=== PATIENT | male | born 1950 | race Caucasian/White ===

== ENCOUNTER 2017-03-12 08:05 | Outpatient (CLI) | payer BC ==
[2017-03-12 12:26] LABS: BASOPHILS % (AUTO) 0.7 %; EOSINOPHILS # (AUTO) 0.4 10^3/uL (0.0-0.7); EOSINOPHILS % (AUTO) 6.7 %; HGB - HEMOGLOBIN 15.3 g/dL (14.0-18.0); LYMPHOCYTES # (AUTO) 1.9 10^3/uL (1.5-3.5); LYMPHOCYTES % (AUTO) 29.1 %; MEAN CORPUSCULAR HEMOGLOBIN 31.3 pg (27.0-31.0); MEAN CORPUSCULAR HGB CONC 33.9 g/dL (32.0-36.0); MEAN CORPUSCULAR VOLUME 92.3 fL (80.0-94.0); MEAN PLATELET VOLUME 8.1 fL (7.4-11.4); MONOCYTES # (AUTO) 0.5 10^3/uL (0.0-1.0); MONOCYTES % (AUTO) 7.1 %; NEUTROPHILS # (AUTO) 3.6 10^3/uL (1.5-6.6); NEUTROPHILS % (AUTO) 56.4 %; PLT - PLATELET COUNT 206 10^3/uL (130-450); RED BLOOD COUNT 4.88 10^6/uL (4.70-6.10); RED CELL DISTRIBUTION WIDTH 12.9 % (12.0-15.0); WHITE BLOOD COUNT 6.5 x10^3/uL (4.8-10.8)
[2017-03-12 13:01] LABS: ALBUMIN 4.1 g/dL (3.2-5.5); ALBUMIN/GLOBULIN RATIO 1.7 (1.0-2.2); ALKALINE PHOSPHATASE 35 IU/L (42-121); ALT ALANINE AMINOTRANSFERASE 20 IU/L (10-60); AST ASPARTATE AMINOTRANSFERASE 28 IU/L (10-42); BILIRUBIN,TOTAL 1.4 mg/dL (0.2-1.0); BUN - BLOOD UREA NITROGEN 9 mg/dL (6-20); CALCIUM 8.7 mg/dL (8.5-10.3); CARBON DIOXIDE - CO2 25 mmol/L (21-32); CHLORIDE 104 mmol/L (101-111); CHOL/HDL RATIO 2.8 (<5.0); CHOLESTEROL 145 mg/dL; CREATININE 0.8 mg/dL (0.6-1.2); GFR - MDRD 97 (>89); GLUCOSE 104 mg/dL (70-100); HDL CHOLESTEROL 52 mg/dL; LDL CHOLESTEROL,CALCULATED 72 mg/dL; LDL/HDL RATIO 1.4 (<3.6); SODIUM 136 mmol/L (135-145); TOTAL PROTEIN 6.5 g/dL (6.7-8.2); VLDL CHOLESTEROL 21 mg/dL
== END 2017-03-12 08:06 | disposition home or self-care (01) ==
LOC: LAB.WCP 08:05
PROVIDERS: ATTEND Family Medicine
DX: R03.0 Elevated blood-pressure reading, without diagnosis of hypertension (principal); E78.5 Hyperlipidemia, unspecified; Z12.5 Encounter for screening for malignant neoplasm of prostate
CPT/HCPCS: 36415; 80053; 80061; 84153; 85025

== ENCOUNTER 2017-05-23 12:07 | Outpatient (CLI) | payer BC | END 2017-05-23 12:08 | disposition EMS.NT | LOC: EMS 12:07 | PROVIDERS: ATTEND Surgery | DX: H53.8 Other visual disturbances (principal) ==

== ENCOUNTER 2017-09-30 08:00 | Outpatient (CLI) | payer BC ==
[2017-09-30 13:54] LABS: ALBUMIN 3.8 g/dL (3.2-5.5); ALBUMIN/GLOBULIN RATIO 1.3 (1.0-2.2); BILIRUBIN,TOTAL 1.6 mg/dL (0.2-1.0); CALCIUM 9.1 mg/dL (8.5-10.3); CREATININE 0.9 mg/dL (0.6-1.2); TOTAL PROTEIN 6.7 g/dL (6.7-8.2)
== END 2017-09-30 08:01 | disposition home or self-care (01) ==
LOC: LAB.WCP 08:00
PROVIDERS: ATTEND Family Medicine
DX: R03.0 Elevated blood-pressure reading, without diagnosis of hypertension (principal)
CPT/HCPCS: 36415; 80053

== ENCOUNTER 2018-03-25 08:00 | Outpatient (CLI) | payer BC ==
[2018-03-25 13:37] LABS: BASOPHILS % (AUTO) 0.7 %; EOSINOPHILS # (AUTO) 0.4 10^3/uL (0.0-0.7); EOSINOPHILS % (AUTO) 6.1 %; HGB - HEMOGLOBIN 14.7 g/dL (14.0-18.0); LYMPHOCYTES # (AUTO) 1.8 10^3/uL (1.5-3.5); LYMPHOCYTES % (AUTO) 29.9 %; MEAN CORPUSCULAR HGB CONC 34.2 g/dL (32.0-36.0); MEAN CORPUSCULAR VOLUME 93.5 fL (80.0-94.0); MEAN PLATELET VOLUME 7.8 fL (7.4-11.4); MONOCYTES # (AUTO) 0.4 10^3/uL (0.0-1.0); MONOCYTES % (AUTO) 7.2 %; NEUTROPHILS # (AUTO) 3.3 10^3/uL (1.5-6.6); NEUTROPHILS % (AUTO) 56.1 %; PLT - PLATELET COUNT 276 10^3/uL (130-450); RED CELL DISTRIBUTION WIDTH 13.1 % (12.0-15.0); WHITE BLOOD COUNT 5.9 x10^3/uL (4.8-10.8)
[2018-03-25 13:44] LABS: ALBUMIN 4.1 g/dL (3.2-5.5); ALBUMIN/GLOBULIN RATIO 1.5 (1.0-2.2); ALKALINE PHOSPHATASE 38 IU/L (42-121); ALT ALANINE AMINOTRANSFERASE 15 IU/L (10-60); AST ASPARTATE AMINOTRANSFERASE 31 IU/L (10-42); BILIRUBIN,TOTAL 1.3 mg/dL (0.2-1.0); BUN - BLOOD UREA NITROGEN 9 mg/dL (6-20); CARBON DIOXIDE - CO2 23 mmol/L (21-32); CHLORIDE 102 mmol/L (101-111); CHOL/HDL RATIO 2.7 (<5.0); CHOLESTEROL 119 mg/dL; GFR - MDRD 75 (>89); GLUCOSE 103 mg/dL (70-100); HDL CHOLESTEROL 44 mg/dL; LDL CHOLESTEROL,CALCULATED 59 mg/dL; LDL/HDL RATIO 1.3 (<3.6); SODIUM 135 mmol/L (135-145); TOTAL PROTEIN 6.8 g/dL (6.7-8.2); VLDL CHOLESTEROL 16 mg/dL
== END 2018-03-25 23:59 | disposition home or self-care (01) ==
LOC: LAB.WCP 08:00
PROVIDERS: ATTEND Family Medicine
DX: E78.5 Hyperlipidemia, unspecified (principal); I10 Essential (primary) hypertension; M54.5 Low back pain; D12.6 Benign neoplasm of colon, unspecified; Z12.5 Encounter for screening for malignant neoplasm of prostate
CPT/HCPCS: 36415; 80053; 80061; 83721; 84153; 85025

== ENCOUNTER 2018-05-02 13:09 | Outpatient (CLI) | payer BC ==
[2018-05-02] MEDS ORDERED: GADOPENTETATE DIMEGLUMINE 5 ML VIAL IVP ONE ×2 (13:28→15:33)
[2018-05-02] MEDS ORDERED: IOTHALAMATE MEGLUMINE 50 ML VIAL ONE (13:28)
[2018-05-02] MEDS ORDERED: BUFFERED LIDOCAINE 10 ML SYRINGE ONE (13:29)
--- NOTE | 2018-05-02 14:56 | XRAY Report ---
Reason: WRIST PAIN,RIGHT Procedure Date: 05/02/2018 Accession Number: [id number] / [id number] Procedure: FL - Arthrogram Needle Placement CPT Code: FULL RESULT: EXAM: Right Wrist Arthrographic Injection with Fluoroscopic Guidance EXAM DATE: 05/02/2018 02:08 PM. CLINICAL HISTORY: Right wrist pain COMPARISON: None. TECHNIQUE: The risks, benefits, and alternatives of the procedure were discussed with the patient. All questions were answered. Written and verbal consent were obtained. The radiocarpal joint was marked under fluoroscopy and prepped and draped in a sterile manner. Local anesthesia was performed with 1% lidocaine. A 25-gauge needle was then inserted into the radiocarpal joint. 2 mL of a solution containing 25% 1% lidocaine, 25% iodinated contrast, and a 1:200 dilution of gadolinium contrast in sterile saline was then injected. The initial contrast injection was unsuccessful with contrast delivered to the dorsal soft tissues. The needle was repositioned and the contrast solution injection was repeated with a total of 4 mL injected. The needle was removed without any further immediate complication. Other: None. Fluoroscopy Time: 0.4 minutes. Number of Images: 15. FINDINGS: Bones and joints: No fracture or subluxation. Injection: Fluoroscopic images demonstrate needle placement and contrast in the radiocarpal joint. Contrast extravasation outside the radiocarpal joint with initial injection as described. IMPRESSION: Fluoroscopically guided arthrographic injection of the wrist as described. [facility]
[2018-05-02] MEDS ORDERED: IOTHALAMATE MEGLUMINE 50 ML VIAL IVP ONE (15:33)
[2018-05-02] MEDS ORDERED: BUFFERED LIDOCAINE 10 ML SYRINGE IU ONE (15:33)
--- NOTE | 2018-05-02 16:44 | MRI Report ---
Reason: WRIST PAIN,RIGHT Procedure Date: 05/02/2018 Accession Number: [id number] / [id number] Procedure: MRI - Arthrogram Wrist RT CPT Code: FULL RESULT: EXAM: RIGHT WRIST MRI ARTHROGRAM WITH CONTRAST EXAM DATE: 05/02/2018 03:06 PM. CLINICAL HISTORY: Right wrist pain. COMPARISON: ARTHROGRAM NEEDLE PLACEMENT 05/02/2018 2:08 PM WRIST 4 VIEW RT 03/30/2018 11:41 AM HAND 3 VIEW RT 07/02/2017 2:37 PM. TECHNIQUE: Multiplanar, multisequence T1-weighted and fluid-sensitive sequences of the wrist after an arthrographic injection of dilute gadolinium, dictated under a separate exam. Other: None. FINDINGS: Bones: There is marrow edema in the lunate with partial fragmentation along the volar margin, likely an old fracture with secondary avascular necrosis or degenerative marrow edema. Remaining bony structures appear intact. Mild first carpometacarpal degenerative joint disease. Cartilage: Mild cartilage thinning in the radiocarpal joint. Moderate mid carpal cartilage thinning at the hamatolunate articulation. There is a 0.3 cm full-thickness tear in the volar aspect of the triangular fibrocartilage near the ulnar styloid attachment with leakage of contrast into the distal radioulnar joint. Ligaments: Mild partial-thickness fraying of the scapholunate ligament but no leakage of contrast into the midcarpal joint. Lunotriquetral ligament intact. The visualized other intrinsic, extrinsic and collateral ligaments are unremarkable. Tendons: The extensor compartments I through and flexor tendons are unremarkable. Musculature: No edema or fatty atrophy. Other: The contents of the carpal tunnel, including the median nerve, are unremarkable. Guyons canal is unremarkable. No ganglion cysts. Contrast in the dorsal soft tissues from the injection. IMPRESSION: 1. Partial fragmentation of the lunate with marrow edema. Likely represents old lunate fracture with secondary degenerative changes or avascular necrosis. 2. Full-thickness partial-width tear triangular fibrocartilage at the ulnar styloid attachment. 3. Mild radiocarpal chondromalacia and moderate focal hamatolunate chondromalacia. 4. Mild first carpometacarpal degenerative joint disease. [facility] MUSCULOSKELETAL RADIOLOGY SECTION
== END 2018-05-02 13:10 | disposition home or self-care (01) ==
LOC: DI 13:09
PROVIDERS: ATTEND Orthopaedic Surgery Sports Medicine
DX: S63.591A Other specified sprain of right wrist, initial encounter (principal); M89.8X3 Other specified disorders of bone, forearm; M94.231 Chondromalacia, right wrist; M18.11 Unilateral primary osteoarthritis of first carpometacarpal joint, right hand
CPT/HCPCS: 25246; 73222; 77002; Q9961

== ENCOUNTER 2018-08-25 08:00 | Outpatient (CLI) | payer BC ==
[2018-08-25 18:55] LABS: BASOPHILS % (AUTO) 0.4 %; EOSINOPHILS # (AUTO) 0.4 10^3/uL (0.0-0.7); EOSINOPHILS % (AUTO) 5.3 %; HGB - HEMOGLOBIN 14.6 g/dL (14.0-18.0); LYMPHOCYTES % (AUTO) 28.5 %; MEAN CORPUSCULAR HEMOGLOBIN 31.1 pg (27.0-31.0); MEAN CORPUSCULAR HGB CONC 32.2 g/dL (32.0-36.0); MEAN CORPUSCULAR VOLUME 96.6 fL (80.0-94.0); MEAN PLATELET VOLUME 9.9 fL (7.4-11.4); MONOCYTES # (AUTO) 0.4 10^3/uL (0.0-1.0); MONOCYTES % (AUTO) 5.9 %; NEUTROPHILS # (AUTO) 4.3 10^3/uL (1.5-6.6); NEUTROPHILS % (AUTO) 59.6 %; PLT - PLATELET COUNT 205 10^3/uL (130-450); RED CELL DISTRIBUTION WIDTH 12.7 % (12.0-15.0); WHITE BLOOD COUNT 7.2 x10^3/uL (4.8-10.8)
[2018-08-25 19:11] LABS: ALBUMIN/GLOBULIN RATIO 1.5 (1.0-2.2); BILIRUBIN,TOTAL 1.1 mg/dL (0.2-1.0); CALCIUM 9.1 mg/dL (8.5-10.3); CREATININE 0.9 mg/dL (0.6-1.2); TOTAL PROTEIN 6.7 g/dL (6.7-8.2)
[2018-08-26 13:07] LABS: HEPATITIS C ANTIBODY NON-REACTIVE (NON-REACTIVE)
== END 2018-08-25 23:58 | disposition home or self-care (01) ==
LOC: LAB.WCP 08:00
PROVIDERS: ATTEND Orthopaedic Surgery
DX: Z01.812 Encounter for preprocedural laboratory examination (principal)
CPT/HCPCS: 36415; 80053; 85025; 86803

== ENCOUNTER 2018-09-07 11:27 | Outpatient (CLI) | payer BC | END 2018-09-07 11:28 | disposition home or self-care (01) | LOC: RT 11:27 | PROVIDERS: ATTEND Orthopaedic Surgery | DX: Z01.810 Encounter for preprocedural cardiovascular examination (principal) | CPT/HCPCS: 93005 ==

== ENCOUNTER 2018-12-29 07:45 | Outpatient (CLI) | payer BC ==
[2018-12-29 12:26] LABS: BASOPHILS % (AUTO) 0.5 %; EOSINOPHILS # (AUTO) 0.5 10^3/uL (0.0-0.7); EOSINOPHILS % (AUTO) 7.1 %; HGB - HEMOGLOBIN 14.3 g/dL (14.0-18.0); LYMPHOCYTES # (AUTO) 2.1 10^3/uL (1.5-3.5); LYMPHOCYTES % (AUTO) 33.1 %; MEAN CORPUSCULAR HEMOGLOBIN 30.6 pg (27.0-31.0); MEAN CORPUSCULAR VOLUME 95.7 fL (80.0-94.0); MEAN PLATELET VOLUME 9.8 fL (7.4-11.4); MONOCYTES # (AUTO) 0.5 10^3/uL (0.0-1.0); MONOCYTES % (AUTO) 7.4 %; NEUTROPHILS # (AUTO) 3.3 10^3/uL (1.5-6.6); NEUTROPHILS % (AUTO) 51.7 %; PLT - PLATELET COUNT 217 10^3/uL (130-450); RED BLOOD COUNT 4.67 10^6/uL (4.70-6.10); RED CELL DISTRIBUTION WIDTH 12.8 % (12.0-15.0); WHITE BLOOD COUNT 6.3 x10^3/uL (4.8-10.8)
[2018-12-29 12:51] LABS: ALBUMIN/GLOBULIN RATIO 1.6 (1.0-2.2); ALKALINE PHOSPHATASE 34 IU/L (42-121); ALT ALANINE AMINOTRANSFERASE 20 IU/L (10-60); AST ASPARTATE AMINOTRANSFERASE 26 IU/L (10-42); BILIRUBIN,TOTAL 1.2 mg/dL (0.2-1.0); BUN - BLOOD UREA NITROGEN 9 mg/dL (6-20); CALCIUM 8.8 mg/dL (8.5-10.3); CARBON DIOXIDE - CO2 25 mmol/L (21-32); CHLORIDE 107 mmol/L (101-111); CHOL/HDL RATIO 2.8 (<5.0); CHOLESTEROL 136 mg/dL; CREATININE 0.8 mg/dL (0.6-1.2); GFR - MDRD 97 (>89); GLUCOSE 107 mg/dL (70-100); HDL CHOLESTEROL 48 mg/dL; LDL CHOLESTEROL,CALCULATED 74 mg/dL; LDL/HDL RATIO 1.5 (<3.6); SODIUM 138 mmol/L (135-145); TOTAL PROTEIN 6.5 g/dL (6.7-8.2); VLDL CHOLESTEROL 14 mg/dL
== END 2018-12-29 23:59 | disposition home or self-care (01) ==
LOC: LAB.WCP 07:45
PROVIDERS: ATTEND Family Medicine
DX: Z00.00 Encounter for general adult medical examination without abnormal findings (principal); N52.9 Male erectile dysfunction, unspecified; M25.531 Pain in right wrist; E78.5 Hyperlipidemia, unspecified; Z12.5 Encounter for screening for malignant neoplasm of prostate
CPT/HCPCS: 36415; 80053; 80061; 83721; 84153; 84443; 85025

== ENCOUNTER 2019-03-15 09:56 | Outpatient (CLI) | payer BC | END 2019-03-15 09:57 | disposition critical access hospital (66) | LOC: EMS 09:56 | PROVIDERS: ATTEND Surgery | DX: R07.89 Other chest pain (principal) | CPT/HCPCS: A0425; A0427 ==

== ENCOUNTER 2019-03-15 10:13 | Emergency (ER) | payer BC ==
--- NOTE | 2019-03-15 10:54 | XRAY Report ---
Reason: Chest pain Procedure Date: 03/15/2019 Accession Number: [id number] / [id number] Procedure: XR - Chest 1 View X-Ray CPT Code: 69247 Final Report FULL RESULT: EXAM: CHEST RADIOGRAPHY EXAM DATE: 03/15/2019 10:46 AM. CLINICAL HISTORY: Chest pain. COMPARISON: CARDIAC CACS OVER 176LBS (ADULT) 10/28/2018 11:18 AM XR CHEST PA AND LAT 08/12/2006 5:13 AM. TECHNIQUE: 1 view. FINDINGS: Lungs/Pleura: Linear scarring at the lateral left lung base, similar to comparison CT. Lungs elsewhere appear clear. Mediastinum: Heart size within normal limits. Other: None. IMPRESSION: No acute consolidations identified. Stable linear scarring suggested at the lateral left lung base. [facility]
[2019-03-15 11:19] LABS: BASOPHILS % (AUTO) 0.3 %; EOSINOPHILS # (AUTO) 0.1 10^3/uL (0.0-0.7); EOSINOPHILS % (AUTO) 1.4 %; HGB - HEMOGLOBIN 13.3 g/dL (14.0-18.0); LYMPHOCYTES # (AUTO) 1.2 10^3/uL (1.5-3.5); LYMPHOCYTES % (AUTO) 15.4 %; MEAN CORPUSCULAR HEMOGLOBIN 31.2 pg (27.0-31.0); MEAN CORPUSCULAR HGB CONC 32.7 g/dL (32.0-36.0); MEAN CORPUSCULAR VOLUME 95.5 fL (80.0-94.0); MEAN PLATELET VOLUME 9.6 fL (7.4-11.4); MONOCYTES # (AUTO) 0.4 10^3/uL (0.0-1.0); MONOCYTES % (AUTO) 5.1 %; NEUTROPHILS # (AUTO) 6.1 10^3/uL (1.5-6.6); NEUTROPHILS % (AUTO) 77.5 %; PLT - PLATELET COUNT 209 10^3/uL (130-450); RED BLOOD COUNT 4.26 10^6/uL (4.70-6.10); RED CELL DISTRIBUTION WIDTH 12.3 % (12.0-15.0); WHITE BLOOD COUNT 7.8 x10^3/uL (4.8-10.8)
[2019-03-15] MEDS ORDERED: HYDROcod/ACETAM 5/325 MG TABLET PO STA (11:24)
[2019-03-15] MEDS ORDERED: KETOROLAC 30 MG/ML VIAL IVP STA (11:24)
--- NOTE | 2019-03-15 11:25 | ED Physician Documentation ---
PD HPI CHEST PAIN - Stated complaint Stated Complaint: CP - Chief complaint Chief Complaint: Cardiac - History obtained from History obtained from: Patient, Family, EMS - History of Present Illness Timing - onset: How many hours ago (6), Today (4 am) Timing - onset during: Rest (awoke from sleep by anterior right chest pain, which has persisted since then. worse with lying down. No change with walking. No change with breathing nor palpation.) Timing - duration: Hours Timing - details: Abrupt onset, Still present, Waxing and waning Quality: Pressure ("like someone pressing their elbow into his chest".), Tightness Location: Right chest Radiation: Back. No: Jaw, Neck Improved by: No: Rest Worsened by: Movement (mildly by chest movement.). No: Exertion, Inspiration, Palpation Associated symptoms: Shortness of air. No: Nausea, Vomiting, Feeling faint / dizzy, General Weakness, Cough Similar symptoms before: Has not had sx before (he says he works out vigorously regularly without chest pain nor dyspnea. He states he has history of bradycardia and right bundle and saw a cleaner laboratory equipment for clearance prior to ortho surgery last fall.) Recently seen: Not recently seen (tried to go to PMD office but was deflected to the ER.) Review of Systems Constitutional: denies: Fever, Chills Nose: denies: Rhinorrhea / runny nose, Congestion Throat: denies: Sore throat Cardiac: denies: Palpitations, Pedal edema, Calf pain Respiratory: denies: Dyspnea, Cough, Wheezing GI: denies: Nausea, Vomiting, Diarrhea Neurologic: denies: Generalized weakness, Difficulty speaking, Near syncope, Syncope, Altered mental status PD PAST MEDICAL HISTORY - Past Medical History Past Medical History: Yes Cardiovascular: Hypertension, High cholesterol, Arrhythmia (bradycardia commonly in 40s-50s.) Respiratory: None Neuro: None Musculoskeletal: Osteoarthritis - Past Surgical History Past Surgical History: Yes General: Appendectomy Ortho: Hip replacement Derm: Skin cancer surgery - Allergies Allergies/Adverse Reactions: Allergies Allergy/AdvReac Type Severity Reaction Status Date / Time Penicillins Allergy Unknown Verified 03/15/19 10:29 - Social History Does the pt smoke?: No Smoking Status: Never smoker PD ED PE NORMAL - Vitals Vital signs reviewed: Yes - General General: Alert and oriented X 3, No acute distress, Well developed/nourished - HEENT HEENT: Moist mucous membranes, Pharynx benign - Neck Neck: Supple, no meningeal sign, No adenopathy - Cardiac Cardiac: RRR, No murmur - Respiratory Respiratory: Clear bilaterally, Other (no chestwall tenderness nor rash) - Abdomen Abdomen: Soft, Non tender Results - Vitals Vitals: Vital Signs - 24 hr 03/15/19 03/15/19 03/15/19 10:23 10:51 12:09 Temperature 36.8 C Heart Rate 52 L 47 L 34 L Respiratory 14 13 15 Rate Blood Pressure 119/72 108/54 L 115/74 O2 Saturation 95 98 100 03/15/19 13:32 Temperature Heart Rate 42 L Respiratory 13 Rate Blood Pressure 118/65 O2 Saturation 100 Oxygen O2 Source Room air - EKG (time done) 10:14 Rate: Rate (enter#) (49) Rhythm: Sinus bradycardia [place]: Normal Intervals: Normal IN, RBBB QRS: Normal Ischemia: Normal ST segments. No: ST elevation c/w ischemia, ST depression Computer interpretation: Agree with computer - Labs Labs: Laboratory Tests 03/15/19 03/15/19 03/15/19 11:02 11:02 11:02 WBC 7.8 RBC 4.26 L Hgb 13.3 L Hct 40.7 L MCV 95.5 H MCH 31.2 H MCHC 32.7 RDW 12.3 Plt Count 209 MPV 9.6 Neut # (Auto) 6.1 Lymph # (Auto) 1.2 L Adams # (Auto) 0.4 Eos # (Auto) 0.1 Baso # (Auto) 0.0 Absolute Nucleated RBC 0.00 Nucleated RBC % 0.0 ESR Sodium 140 Potassium 4.0 Chloride 108 Carbon Dioxide 24 Anion Gap 8.0 BUN 13 Creatinine 0.9 Estimated GFR (MDRD) 84 L Glucose 123 H Calcium 8.9 Magnesium Total Bilirubin 1.1 H AST 22 ALT 16 Alkaline Phosphatase 32 L Troponin I High Sens < 2.3 L B-Natriuretic Peptide Total Protein 6.0 L Albumin 3.9 Globulin 2.1 Albumin/Globulin Ratio 1.9 Lipase 31 03/15/19 03/15/19 03/15/19 11:25 11:25 11:25 WBC RBC Hgb Hct MCV MCH MCHC RDW Plt Count MPV Neut # (Auto) Lymph # (Auto) Adams # (Auto) Eos # (Auto) Baso # (Auto) Absolute Nucleated RBC Nucleated RBC % ESR 5 Sodium Potassium Chloride Carbon Dioxide Anion Gap BUN Creatinine Estimated GFR (MDRD) Glucose Calcium Magnesium 2.0 Total Bilirubin AST ALT Alkaline Phosphatase Troponin I High Sens B-Natriuretic Peptide 42 Total Protein Albumin Globulin Albumin/Globulin Ratio Lipase - Rads (name of study) chest xray Radiology: Prelim report reviewed (no acute process), See rad report PD MEDICAL DECISION MAKING - ED course Complexity details: reviewed results (normal trop and BNP 6 hours after onset of symptoms. No ACS. He has bradycardia on monitor in 40s-50s with lowest at 38. He feels normal with this rate. BP unchanged and the rate varies on its own up to mid 50s. He is not on any meds to slow rate. We did discuss potentially cutting BP med lisinopril in half if his BP is "too normal" - i.e. low in the 110-120 range regularly. ), re-evaluated patient, d/w acura sales consultant (talked with Dr. Denson, who he has seen for cardiac eval prior to ortho surgery last fall. Had just ECG without any other heart testing, with note of RBBB and bradycardia at 50. Since patient without symptoms related to the bradycardia, Dr. Denson did not see urgency in eval. But will see patient for stress testing next week, pt to call for appt. Given bradycardia and also prior RBBB, Dr. Denson predicts the patient will be needing pacemaker within "next few years".) Departure - Departure Disposition: 01 Home, Self Care Clinical Impression: Bradycardia Chest pain Qualifiers: Chest pain type: precordial pain Qualified Code(s): R07.2 - Precordial pain Condition: Stable Record reviewed to determine appropriate education?: Yes Instructions: ED Chest Pain NonCardiac Follow-Up: Ronnie Roman MD [Primary Care Provider] - Comments: No signs of heart attack or heart failure or lung problems based on your test today. Your heart rate is relatively slow. I talked with Dr. denson, you you would see in for cardiology, and he would like to see you in follow-up for stress testing of the heart and further discussion about the heart rate. Dr. denson was comfortable with your heart rate being in low as long as you are not feeling dizzy or lightheaded with it. Call his office today for follow-up appointments likely next week. Stay well- hydrated. Meanwhile you could use some anti-inflammatories such as naproxen or ibuprofen twice daily and add Tylenol every 6 hours if needed for pain presuming some musculoskeletal chest pain today. Discharge Date/Time: 03/15/19 13:40
[2019-03-15 11:34] LABS: ALBUMIN 3.9 g/dL (3.2-5.5); ALBUMIN/GLOBULIN RATIO 1.9 (1.0-2.2); BILIRUBIN,TOTAL 1.1 mg/dL (0.2-1.0); CALCIUM 8.9 mg/dL (8.5-10.3); CREATININE 0.9 mg/dL (0.6-1.2)
[2019-03-15] MEDS ORDERED: NITROGLYCERIN SL 0.4 MG TABLET SL STA (11:55)
[2019-03-15] MEDS ORDERED: SODIUM CHLORIDE 0.9% 1,000 ML IV ONE (11:55)
[2019-03-15 13:33] VITALS: BP 118/65
== END 2019-03-15 13:40 | disposition home or self-care (01) ==
LOC: EDUNIT# → ED 10:13
DX: R07.2 Precordial pain (principal); R00.1 Bradycardia, unspecified; I45.10 Unspecified right bundle-branch block; I10 Essential (primary) hypertension
CPT/HCPCS: 36415; 71045; 80053; 83690; 83735; 83880; 84484; 85025; 85651; 93005; 96361; 96374; 99284; A9270

== ENCOUNTER 2020-05-09 08:00 | Outpatient (CLI) | payer BC, OTHER ==
[2020-05-09 13:53] LABS: BASOPHILS % (AUTO) 0.8 %; EOSINOPHILS # (AUTO) 0.2 10^3/uL (0.0-0.7); EOSINOPHILS % (AUTO) 3.3 %; HCT - HEMATOCRIT 50.9 % (42.0-52.0); HGB - HEMOGLOBIN 15.4 g/dL (14.0-18.0); LYMPHOCYTES # (AUTO) 1.7 10^3/uL (1.5-3.5); LYMPHOCYTES % (AUTO) 32.9 %; MEAN CORPUSCULAR HGB CONC 30.3 g/dL (32.0-36.0); MEAN CORPUSCULAR VOLUME 102.6 fL (80.0-94.0); MEAN PLATELET VOLUME 9.3 fL (7.4-11.4); MONOCYTES # (AUTO) 0.4 10^3/uL (0.0-1.0); MONOCYTES % (AUTO) 7.1 %; NEUTROPHILS # (AUTO) 2.9 10^3/uL (1.5-6.6); NEUTROPHILS % (AUTO) 55.7 %; PLT - PLATELET COUNT 245 10^3/uL (130-450); RED BLOOD COUNT 4.96 10^6/uL (4.70-6.10); RED CELL DISTRIBUTION WIDTH 12.7 % (12.0-15.0); WHITE BLOOD COUNT 5.2 x10^3/uL (4.8-10.8)
[2020-05-09 14:18] LABS: THYROID STIMULATING HORMONE 3.16 uIU/mL (0.34-5.60)
[2020-05-09 14:38] LABS: ALBUMIN 4.2 g/dL (3.2-5.5); ALBUMIN/GLOBULIN RATIO 1.8 (1.0-2.2); ALKALINE PHOSPHATASE 40 IU/L (42-121); ALT ALANINE AMINOTRANSFERASE 15 IU/L (10-60); AST ASPARTATE AMINOTRANSFERASE 23 IU/L (10-42); BUN - BLOOD UREA NITROGEN 9 mg/dL (6-20); CALCIUM 9.3 mg/dL (8.5-10.3); CARBON DIOXIDE - CO2 24 mmol/L (21-32); CHLORIDE 104 mmol/L (101-111); CHOL/HDL RATIO 4.2 (<5.0); CHOLESTEROL 219 mg/dL; CREATININE 0.9 mg/dL (0.6-1.2); GFR - MDRD 84 (>89); GLUCOSE 99 mg/dL (70-100); HDL CHOLESTEROL 52 mg/dL; LDL CHOLESTEROL,CALCULATED 149 mg/dL; LDL/HDL RATIO 2.9 (<3.6); POTASSIUM 3.9 mmol/L (3.5-5.0); SODIUM 138 mmol/L (135-145); TOTAL PROTEIN 6.6 g/dL (6.7-8.2); TRIGLYCERIDES 90 mg/dL; VLDL CHOLESTEROL 18 mg/dL
== END 2020-05-09 23:59 | disposition home or self-care (01) ==
LOC: LAB.WCP 08:00
PROVIDERS: ATTEND Family Medicine
DX: I10 Essential (primary) hypertension (principal); R73.01 Impaired fasting glucose; E78.5 Hyperlipidemia, unspecified
CPT/HCPCS: 36415; 80053; 80061; 83721; 84443; 85025

== ENCOUNTER 2022-05-20 07:30 | Day surgery (SDC) | payer MEDICARE ==
[2022-05-20] MEDS ORDERED: LACTATED RINGERS 1,000 ML IV ONE (07:51)
[2022-05-20] MEDS ORDERED: PROPOFOL 500 MG/50 ML 500 MG/50 ML VIAL ONE (08:51)
--- NOTE | 2022-05-20 09:05 | ANESTHESIA ---
Pre-Anesthesia VS, & Labs - Diagnosis screening exam - Procedure colonoscopy Vital Signs: Temp Pulse Resp BP Pulse Ox O2 Flow Rate 36.4 C L 56 L 10 L 156/88 H 99 05/20/22 07:49 05/20/22 07:49 05/20/22 07:49 05/20/22 07:49 05/20/22 07:49 Height: 6 ft 1 in Weight (kg): 101 kg Body Mass Index: 29.3 BMI Classification: Overweight - NPO >8 hours Home Medications and Allergies Home Medications: Ambulatory Orders Carbidopa/Levodopa [Carbidopa-Levo ER 25-100 Tab] 1 tab PO DAILY 05/19/22 Omeprazole 1 cap PO PRN PRN 05/19/22 Carbidopa/Levodopa [Carbidopa-Levo ER 25-100 Tab] 1 tab PO DAILY 05/19/22 Omeprazole 1 cap PO PRN PRN 05/19/22 Allergies/Adverse Reactions: Allergies Allergy/AdvReac Type Severity Reaction Status Date / Time Penicillins Allergy Unknown Verified 05/19/22 12:39 Anes History & Medical History - Anesthetic History Anesthesia Complications: reports: No previous complications - Medical History Cardiovascular: reports: Hypertension, High cholesterol Pulmonary: reports: None Gastrointestinal: reports: GERD Urinary: reports: None Neuro: reports: Parkinson's Musculoskeletal: reports: Osteoarthritis Endocrine/Autoimmune: reports: None Skin: reports: None Smoking Status: Never smoker Psychosocial: reports: No issues indicated History of Cancer?: No - Surgical History General: reports: Appendectomy, Colonoscopy Eyes Ears Nose Throat (EENT): reports: Tonsil/Adenoidectomy Orthopedic: reports: Hip replacement, Other Dermatologic: reports: Skin cancer surgery Exam General: Alert, Oriented x3, Cooperative, No acute distress Dental: WNL Mouth Openin Fingerbreadth Neck Mobility: Normal Mallampati classification: III Thyromental Distance: 4-6 cm Mental/Cognitive Status: Alert/Oriented X3, Normal for patient Plan Anesthesia Type: General, Total IV Consent for Procedure(s) Verified and Reviewed: Yes Code Status: Attempt Resuscitation ASA classification: 2-Mild systemic disease Is this case an emergency?: No
[2022-05-20] MEDS ORDERED: LACTATED RINGERS 300 ML IV ONE (09:52)
[2022-05-20 10:19] VITALS: BP 124/67
--- NOTE | 2022-05-20 16:26 | ANESTHESIA POST OP EVALUATION ---
Anesthesia Post Eval - Post Anesthesia Eval Vitals: Last Vital Signs Temp 36.1 C L 05/20/22 10:17 Pulse 54 L 05/20/22 10:17 Resp 16 05/20/22 10:17 BP 124/67 05/20/22 10:17 Pulse Ox 100 05/20/22 10:17 O2 Flow Rate CV Function Including HR & BP: Stable Pain Control: Satisfactory Nausea & Vomiting: Negative Mental Status: Baseline Respiratory Status: Airway Patent Hydration Status: Satisfactory Anesthesia Complications: None
== END 2022-05-20 07:31 | disposition home or self-care (01) ==
LOC: SDS 07:30
PROVIDERS: ATTEND Surgery
DX: Z12.11 Encounter for screening for malignant neoplasm of colon (principal); K64.8 Other hemorrhoids; G20 Parkinson's disease; I10 Essential (primary) hypertension
CPT/HCPCS: G0121; J7120